=== PATIENT | female | born 1945 | race Caucasian/White ===

== ENCOUNTER 2017-02-17 10:51 | Inpatient (IN) | payer OTHER ==
[~2017-02-17] VITALS: Ht 177.8 cm; Wt 99.7 kg
[~2017-02-17 10:51] MED LIST: CELEBREX200 MG PO; CENTRUM SILV1 TABLE1 PO; COZAAR100 MG PO; Ecotrin PO; Feosol PO; K-Dur PO; LASIX40 MG PO; Lipitor PO; NEXIUM40 MG PO; SENOKOT S,PE1 TABLET PO; VITAMIN D1000 INTUN PO; Vicodin,Norco 5/325 PO
[2017-02-17 11:43] LABS: EOSINOPHIL (%) 1.6 % (0-5); EOSINOPHIL COUNT 0.1 K/uL (0-0.3); HEMATOCRIT 36.2 % (36.0-46.0); IMMATURE GRANULOCYTE (%) 0.4 % (0.0-0.7); INSTRUMENT ABS NEUTROPHIL CT 4.1 K/uL; LYMPHOCYTE COUNT 1.8 K/uL (1.0-2.8); MCH 28.9 PG (29.0-34.0); MCHC 32.6 G/DL (30.0-36.0); MCV 88.5 FL (83-99); MEAN PLAT.VOLUME 9.2 uM^3 (9.5-12.4); MONOCYTE (%) 10.2 % (3-12); MONOCYTE COUNT 0.7 K/uL (0-0.8); NEUTROPHIL COUNT 4.1 K/uL (1.8-6.4); PLATELET COUNT 195 K/uL (156-360); RBC DIS.WIDTH-CV 13.9 % (11.8-14.6); RBC DIS.WIDTH-SD 44.7 % (39-53); RED BLOOD COUNT 4.09 M/uL (3.80-5.20); WHITE BLOOD COUNT 6.8 K/uL (4.1-10.2)
[2017-02-17 11:56] LABS: CHLORIDE 109 mEq/L (99-109); POTASSIUM 3.9 mEq/L (3.7-5.4); SODIUM 143 mEq/L (136-147)
[2017-02-17 11:57] LABS: GLUCOSE 93 mg/dL (70-99)
[2017-02-17 11:59] LABS: ANION GAP 9 MEQ/L (2-14)
[2017-02-17 12:01] LABS: GFR ESTIMATE (CALCULATED) > 59 mL/min/; PROTHROMBIN TIME 10.4 (9.2-11.2); PTT 24.9 (25-32)
[2017-02-17 12:02] LABS: UREA NITROGEN (BUN) 19 mg/dL (9-23)
[2017-02-17 12:06] LABS: TROP-I INTERPRETATION NEGATIVE; TROPONIN-I < 0.01 ng/mL (0.0-0.30)
[2017-02-17] MEDS ORDERED: VITAMIN D31000 UNIT PO (13:24)
[2017-02-17] MEDS ORDERED: IRON325 MG PO (13:26)
[2017-02-17] MEDS ORDERED: K-DUR20 MEQ PO (13:26)
[2017-02-17] MEDS ORDERED: CENTRUM SILVER1 EAC4 PO (13:27)
[2017-02-17] MEDS ORDERED: PANTOPRAZOLE SO40 MG PO (13:28)
[2017-02-17] MEDS ORDERED: PRAVASTATIN SOD40 MG PO (13:28)
[2017-02-17] MEDS ORDERED: GABAPENTIN300 MG PO (13:29)
[2017-02-17] MEDS ORDERED: CHLORDIAZEPOXID10 MG PO (13:29)
[2017-02-17] MEDS ORDERED: VALSARTAN320 MG PO (13:29)
[2017-02-17 15:43] VITALS: BP 181/88
[2017-02-17 16:08] LABS: Estimated Average Glucose 128 mg/dL (70-123); HEMOGLOBIN A1c (GLYCOHEMOGLOB) 6.1 % HGB (Below 5.7)
[2017-02-17 16:19] LABS: HDL CHOLESTEROL 51 MG/DL (Desirable>=50); LDL CHOLESTEROL 128 mg/dL (Desirable<100); NON-HDL CHOLESTEROL 152 mg/dL (Desirable<160); TOTAL CHOLESTEROL 203 mg/dL (Desirable<200); TRIGLYCERIDES 119 MG/DL (Normal: <150)
[2017-02-17] MEDS ORDERED: LIBRIUM10 MG PO (16:30)
[2017-02-17 18:16] LABS: TROP-I INTERPRETATION NEGATIVE; TROPONIN-I < 0.01 ng/mL (0.0-0.30)
[2017-02-17 19:20] VITALS: BP 156/73
[2017-02-18 00:47] LABS: TROP-I INTERPRETATION NEGATIVE; TROPONIN-I < 0.01 ng/mL (0.0-0.30)
[2017-02-18 01:09] VITALS: BP 133/63
[2017-02-18 04:57] VITALS: BP 158/90
[2017-02-18 07:05] LABS: HEMATOCRIT 34.9 % (36.0-46.0); MCHC 31.8 G/DL (30.0-36.0); MCV 87.9 FL (83-99); MEAN PLAT.VOLUME 9.9 uM^3 (9.5-12.4); PLATELET COUNT 207 K/uL (156-360); RBC DIS.WIDTH-CV 14.1 % (11.8-14.6); RBC DIS.WIDTH-SD 45.1 % (39-53); RED BLOOD COUNT 3.97 M/uL (3.80-5.20); WHITE BLOOD COUNT 6.5 K/uL (4.1-10.2)
[2017-02-18 07:37] VITALS: BP 143/68
[2017-02-18 17:21] VITALS: BP 123/70
[2017-02-18 20:15] VITALS: BP 142/61
[2017-02-19] VITALS: BP 126/83
[2017-02-19 04:00] VITALS: BP 131/70
[2017-02-19 07:22] VITALS: BP 137/83
[2017-02-19 11:20] VITALS: BP 124/74
[2017-02-19] MEDS ORDERED: ASPIRIN EC325 MG PO (13:45)
== END 2017-02-19 14:49 | disposition home or self-care (01) | DRG 66 ==
LOC: EME 10:51 → EDOF 13:24 → 5WEST 13:24 → 5SOUTH 02-18 15:45
PROVIDERS: Emergency Medicine; Hospitalist
DX: I63.9 Cerebral infarction, unspecified (principal); I10 Essential (primary) hypertension; E78.00 Pure hypercholesterolemia, unspecified; K21.9 Gastro-esophageal reflux disease without esophagitis; G89.29 Other chronic pain; M54.9 Dorsalgia, unspecified; Z96.651 Presence of right artificial knee joint; Z88.0 Allergy status to penicillin; Z88.2 Allergy status to sulfonamides; Z91.040 Latex allergy status
CPT/HCPCS: 70450; 70551; 71010; 80048; 80061; 83036; 84484; 85025; 85027; 85610; 85730; 93005; 93306; 93880; 99281; 99285; G0378; J1644